=== PATIENT | female | born 1950 | race African-American/Black ===

== ENCOUNTER 2017-03-02 20:14 | Emergency (ER) | payer MEDICAID ==
[~2017-03-02] VITALS: Ht 170.2 cm; Wt 88.0 kg
[~2017-03-02 20:14] MED LIST: ANTIVERT25 MG ORAL; ATIVAN0.5 MG ORAL; ZOFRAN ODT4 MG ORAL
[2017-03-02] MEDS ORDERED: HUMULIN R500 UNIT/2 SQ (20:27)
[2017-03-02] MEDS ORDERED: BASAGLAR K100 UNIT/1 SQ (20:27)
[2017-03-02] MEDS ORDERED: GABAPENTIN300 MG ORAL (20:29)
[2017-03-02] MEDS ORDERED: METFORMIN HCL500 M1 ORAL (20:29)
[2017-03-02] MEDS ORDERED: LEVOTHYROXINE25 MCG ORAL (20:29)
[2017-03-02] MEDS ORDERED: ASPIRIN81 MG ORAL (20:29)
[2017-03-02 20:30] VITALS: BP 124/64
--- NOTE | 2017-03-02 21:03 | Emergency Room Report ---
History of Present Illness General Chief Complaint: Abnormal Labs Source: Patient Present Illness HPI Is a 66-year-old female with history insulin-dependent diabetes and also on metformin. She presents with chief complaint of high blood sugar. Has been ongoing for last 2 days. No fever chills but no nausea no vomiting. Does have some vaginal irritation. No discharge. No fever chills but no cough or congestion. Blood sugar been running in the 400-500 at home last 2 days. Tonight it was in the 600. Allergies: Coded Allergies: No Known Allergies (Unverified , 03/02/17) Patient History Past Medical History: see triage record, old chart reviewed, DM Past Surgical History: other Pertinent Family History: none Social History: Denies: smoking Last Menstrual Period: n/a Now: No Immunizations: other Reviewed Nursing Documentation: PMH: Agreed, PSxH: Agreed Nursing Documentation-PMH Past Medical History: No History, Except For Hx Diabetes: Yes Hx Neurological Problems: Yes - HYPOTHYROIDISM Review of Systems Eye: Denies: blurred vision, eye pain ENT: Denies: ear pain, nose congestion, throat swelling Respiratory: Denies: cough, shortness of breath Cardiovascular: Denies: chest pain, palpitations Gastrointestinal: Denies: abdominal pain, diarrhea, nausea, vomiting Musculoskeletal: Denies: back pain, joint pain Skin: Denies: rash Neurological: Denies: headache, numbness Endocrine: Denies: increased thirst, increased urine Hematologic/Lymphatic: Denies: easy bruising All Other Systems: negative except mentioned in HPI Physical Exam Vital Signs Date Time Temp Pulse Resp B/P Pulse Ox O2 Delivery O2 Flow Rate FiO2 03/02/17 20:20 97.7 92 16 163/82 99 Room Air vitals with hypertension Sp02 EP Interpretation: reviewed, normal General Appearance: well appearing, no apparent distress, alert Head: normocephalic, atraumatic Eyes: bilateral eye EOMI, bilateral eye PERRL ENT: hearing grossly normal, normal pharynx Neck: full range of motion, supple, no meningismus Respiratory: chest non-tender, lungs clear, normal breath sounds Cardiovascular #1: regular rate, rhythm, no murmur Gastrointestinal: normal bowel sounds, non tender, no mass, no organomegaly, no bruit, non-distended Musculoskeletal: back normal, gait/station normal, normal range of motion Psychiatric: mood/affect normal Skin: warm/dry Medical Decision Making Diagnostic Impression: Primary Impression: Hyperglycemia due to type 1 diabetes mellitus ER Course Patient with hypoglycemia. No DKA. No evidence of infection. Patient takes a very high dose of insulin. I suspect noncompliance with diet. We'll discharge home. Lab Results Impression labs with hypoglycemia Last Vital Signs Date Time Temp Pulse Resp B/P Pulse Ox O2 Delivery O2 Flow Rate FiO2 03/02/17 20:20 97.7 92 16 163/82 99 Room Air Status: improved Disposition: HOME, SELF-CARE Condition: Stable Additional Instructions: Followup your Dr. in 7 days. Check your sugar regularly. Increase her insulin to 10 units 3 times a day. Continue with sliding scale. Return if symptom worsen. CALLUM ARCE M.D. Mar 02, 2017 21:03
[2017-03-02 21:23] LABS: BASOPHILS % (AUTO) 0.8 % (0.0-2.0); EOSINOPHILS % (AUTO) 2.7 % (0.0-3.0); LYMPHOCYTES % (AUTO) 25.9 % (20.0-45.0); MEAN CORPUSCULAR HEMOGLOBIN 30.8 PG (27.0-31.0); MEAN CORPUSCULAR VOLUME 93 FL (80-99); MEAN PLATELET VOLUME 8.4 FL (6.5-10.1); MONOCYTES % (AUTO) 4.7 % (1.0-10.0); NEUTROPHILS % (AUTO) 65.8 % (45.0-75.0); PLATELET COUNT 274 K/UL (150-450); RED BLOOD COUNT 4.14 M/UL (4.20-5.40); RED CELL DISTRIBUTION WIDTH 12.3 % (11.6-14.8); WHITE BLOOD COUNT 10.5 K/UL (4.8-10.8)
[2017-03-02 21:36] LABS: ANION GAP 12 (5-15); CALCIUM 9.7 mg/dL (8.6-10.2); CARBON DIOXIDE 25 mEQ/L (20-30); CHLORIDE 98 mEQ/L (98-107); CREATININE 0.8 mg/dL (0.5-0.9); GLOMERULAR FILTRATION RATE > 60 mL/min (>60); HEMOLYSIS 5; POTASSIUM 4.4 mEQ/L (3.4-4.9); SODIUM 135 mEQ/L (135-145)
[2017-03-02 21:38] LABS: APPEARANCE,URINE CLEAR; KETONES,URINE NEGATIVE (NEGATIVE); LEUKOCYTE ESTERASE ,URINE NEGATIVE (NEGATIVE); NITRITE,URINE NEGATIVE (NEGATIVE); PH,URINE 6.5 (4.5-8.0); PROTEIN,URINE NEGATIVE (NEGATIVE); UROBILINOGEN,URINE NORMAL MG/DL (0.0-1.0)
[2017-03-02 22:05] VITALS: BP 120/67
[2017-03-02 23:15] VITALS: BP 115/68
[2017-03-02 23:30] VITALS: BP 115/68
== END 2017-03-02 23:30 | disposition home or self-care (01) ==
LOC: EMR 21:19
DX: E10.65 Type 1 diabetes mellitus with hyperglycemia (principal); Z79.84 Long term (current) use of oral hypoglycemic drugs; E03.9 Hypothyroidism, unspecified
CPT/HCPCS: 36415; 80048; 81003; 82962; 85025; 96360; 96361; 96374; 99284; J1815